=== PATIENT | male | born 1975 | race Caucasian/White ===

== ENCOUNTER 2017-07-28 12:23 | Emergency (ER) | payer OTHER ==
[~2017-07-28] VITALS: Ht 175.3 cm; Wt 76.7 kg
[2017-07-28] MEDS ORDERED: ALBUTEROL/IPRATROPIUM 2.5MG/0.5MG, 3 ML NPPB ONE (13:00)
[2017-07-28] MEDS ORDERED: SODIUM CHLORIDE 0.9% 1,000ML IVBOLUS ONE (13:00)
[2017-07-28] MEDS ORDERED: methylPREDNISolone SOD SUCC 125 MG/2 ML IVP ONE (13:00)
[2017-07-28] MEDS ORDERED: SODIUM CHLORIDE FLUSH 10ML SYR IVF ONE (13:00)
[2017-07-28] MEDS ORDERED: ALBUTEROL/IPRATROPIUM 2.5MG/0.5MG, 3 ML ONE (13:07)
[2017-07-28 13:18] LABS: HEMATOCRIT 52.8 % (39.2-51.8); WHITE BLOOD COUNT 8.1 x10^3/uL (3.4-10)
[2017-07-28] MEDS ORDERED: methylPREDNISolone SOD SUCC 125 MG/2 ML ONE (13:25)
[2017-07-28 13:29] LABS: BLOOD UREA NITROGEN 21 mg/dL (7-18)
[2017-07-28 13:34] LABS: ASPARTATE AMINO TRANSFERASE 22 U/L (15-37)
[2017-07-28 13:44] LABS: IS PT STATUS REG ER OR PRE ER? YES
[2017-07-28 14:34] VITALS: BP 153/7
[2017-07-28] MEDS ORDERED: AZITHROMYCIN 500 MG TABLET PO ONE (15:00)
[2017-07-28] MEDS ORDERED: CEFTRIAXONE PMX 1GM/50ML 50 ML IV ONE (15:00)
[2017-07-28] MEDS ORDERED: CEFTRIAXONE PMX 1GM/50ML 50 ML ONE (15:36)
[2017-07-28] MEDS ORDERED: AZITHROMYCIN 250 MG TABLET ONE (15:37)
== END 2017-07-28 15:48 | disposition home or self-care (01) ==
LOC: ED 13:07
DX: J18.1 Lobar pneumonia, unspecified organism (principal); J45.909 Unspecified asthma, uncomplicated
CPT/HCPCS: 36415; 71010; 80053; 84484; 85025; 93005; 94640; 96361; 96374; 96375; 99285; J0696; J2930; J7030; J7620